=== PATIENT | male | born 1995 | race Hispanic/Latino ===

== ENCOUNTER 2017-10-01 21:33 | Emergency (ER) | payer OTHER ==
[2017-10-01 22:25] VITALS: BP 116/68
[2017-10-01] MEDS ORDERED: Sodium Chloride 0.9% 1,000 ML IV STA (22:36)
--- NOTE | 2017-10-01 22:42 | ED PDOC ---
Syncope/Near Syncope/Dizziness Time Seen by Provider: 10/01/17 22:14 Chief Complaint (Nursing): Dizziness/Lightheaded Chief Complaint (Provider): near-syncope History Per: Patient History/Exam Limitations: no limitations Onset/Duration Of Symptoms: Hrs (2) Current Symptoms Are (Timing): Still Present Activity At Onset Of Symptoms: Exertional Activity Associated Symptoms Preceding Syncopal Episode: Lightheadedness Additional Complaint(s): 22 y/o male presents for evaluation of near-syncopal episode 2 hours prior to arrival. Patient states he had just finished intercourse and when he stood up he got lightheaded and weak and felt like he was going to pass out. Patient states he then laid down with legs elevated and began to develop shortness of breath and pain in his left lower rib area. Patient reports same pain earlier this morning, which had resolved for most of the day. Denies fever, headache, dizziness, nausea/vomiting, palpitations, abdominal pain, vomiting, changes in bowel movements, urinary symptoms. Past Medical History Reviewed: Historical Data, Nursing Documentation, Vital Signs Vital Signs: Last Vital Signs Temp 97.9 F 10/01/17 22:04 Pulse 76 10/01/17 22:24 Resp 17 10/01/17 22:24 BP 116/68 10/01/17 22:24 Pulse Ox 99 10/01/17 22:24 - Medical History PMH: Obstructive Bowel - Surgical History Surgical History: No Surg Hx - Family History Family History: States: No Known Family Hx - Living Arrangements Living Arrangements: Alone - Social History Current smoker - smoking cessation education provided: No Alcohol: None Drugs: Denies - Allergies Allergies/Adverse Reactions: Allergies Allergy/AdvReac Type Severity Reaction Status Date / Time No Known Allergies Allergy Verified 10/01/17 22:05 Review of Systems ROS Statement: Except As Marked, All Systems Reviewed And Found Negative Constitutional: Positive for: Weakness Cardiovascular: Positive for: Chest Pain (left lower rib pain) Respiratory: Positive for: Shortness of Breath Physical Exam - Reviewed Nursing Documentation Reviewed: Yes Vital Signs Reviewed: Yes - Physical Exam Appears: Positive for: Well, Non-toxic, Uncomfortable Head Exam: Positive for: ATRAUMATIC, NORMAL INSPECTION, NORMOCEPHALIC Skin: Positive for: Normal Color Eye Exam: Positive for: Normal appearance ENT: Positive for: Normal ENT Inspection Cardiovascular/Chest: Positive for: Regular Rate, Rhythm Respiratory: Positive for: Normal Breath Sounds Gastrointestinal/Abdominal: Positive for: Normal Exam Back: Positive for: Normal Inspection Extremity: Positive for: Normal ROM Neurologic/Psych: Positive for: Alert, Oriented - Laboratory Results Result Diagrams: 10/01/17 23:02 10/01/17 23:02 - ECG ECG: Positive for: Viewed By Me (reviewed by ED attending) ECG Rhythm: Positive for: Sinus Rhythm O2 Sat by Pulse Oximetry: 99 - Radiology X-Ray: Viewed By Me X-Ray Interpretation: No Acute Disease - Progress ED Course And Treament: labs, urine, ekg, chest xray, orthostatics, IV fluids Patient evaluated by ED attending Dr. Klein; IV toradol ordered On re-eval, patient states chest pain markedly improved; requesting to be discharged Patient educated on findings, discharged with instructions to follow up PMD 2-3 days. Advised fluids, NSAIDs Return precautions given Disposition - Clinical Impression Clinical Impression: Near syncope, Atypical chest pain - Patient ED Disposition Is Patient to be Admitted: No Counseled Patient/Family Regarding: Studies Performed, Diagnosis, Need For Followup - Disposition Disposition: Routine/Home Disposition Time: 03:45 Condition: IMPROVED Instructions: Chest Pain That Is Not Caused by the Heart (DC), Near Fainting Forms: [employer] ([place] Citizen)
[2017-10-01 23:26] LABS: BASO % 0.6 % (0.0-2.0); EOS # 0.3 K/uL (0.0-0.7); EOS % 4.5 % (0.0-4.0); HEMOGLOBIN 14.8 g/dL (12.0-18.0); LYMPH # 3.4 K/uL (1.0-4.3); LYMPH % 45.8 % (20.0-40.0); MEAN CELL VOLUME 88.1 fl (80.0-94.0); MEAN CORPUSCULAR HEMOGLOBIN 30.5 pg (27.0-31.0); MEAN CORPUSCULAR HGB CONC 34.6 g/dL (33.0-37.0); MEAN PLATELET VOLUME 8.9 fl (7.2-11.7); MONO # 0.6 K/uL (0.0-0.8); MONO % 7.4 % (0.0-10.0); NEUT # 3.1 K/uL (1.8-7.0); NEUT % 41.7 % (50.0-75.0); NRBC % 0.1 % (0.0-0.0); RBC 4.83 Mil/uL (4.40-5.90); RED CELL DISTRIBUTION WIDTH 13.5 % (11.5-14.5); WHITE BLOOD COUNT 7.5 K/uL (4.8-10.8)
[2017-10-01 23:31] LABS: ALB/GLOB RATIO 1.8 (1.0-2.1); ALBUMIN 4.5 g/dL (3.5-5.0); ALT/SGPT 26 U/L (21-72); AST/SGOT 24 U/L (17-59); BLOOD UREA NITROGEN 18 mg/dl (9-20); CALCIUM 10.1 mg/dL (8.4-10.2); GFR AFRICAN-AMERICAN > 60; GFR NON-AFRICAN AMERICAN > 60
[2017-10-01 23:32] LABS: SPERM URINE RARE /hpf; SQUAMOUS EPITHIAL 1 /hpf (0-5); URINE BILIRUBIN NEGATIVE (NEGATIVE); URINE BLOOD NEGATIVE (NEGATIVE); URINE CLARITY CLEAR (Clear); URINE COLOR YELLOW (YELLOW); URINE GLUCOSE (UA) NEG (Normal); URINE LEUKOCYTE ESTERASE NEG Leu/uL (Negative); URINE PROTEIN NEGATIVE (NEGATIVE); URINE UROBILINOGEN 0.2-1.0 mg/dL (0.2-1.0)
[2017-10-02] MEDS ORDERED: Sodium Chloride 0.9% 1,000 ML IV STA (00:02)
[2017-10-02] MEDS ORDERED: DiphenhydrAMINE 50 mg/ml Inj IV ONE (01:11)
[2017-10-02 03:17] VITALS: PULSE 78; RESP 16; TEMP 98.1
--- NOTE | 2017-10-02 09:22 | RAD ---
Date of service: 10/02/2017 HISTORY: left-sided pain, sob COMPARISON: No prior. TECHNIQUE: Chest PA and lateral FINDINGS: LUNGS: No active pulmonary disease. PLEURA: No significant pleural effusion identified. No pneumothorax apparent. CARDIOVASCULAR: Normal. OSSEOUS STRUCTURES: No significant abnormalities. VISUALIZED UPPER ABDOMEN: Normal. OTHER FINDINGS: None. IMPRESSION: No active disease.
[2017-10-07 05:18] VITALS: O2SAT 99
== END 2017-10-02 03:50 | disposition home or self-care (01) ==
LOC: H.ER 21:33
DX: R55 Syncope and collapse (principal); R07.9 Chest pain, unspecified
CPT/HCPCS: 71046; 80053; 81003; 84484; 85025; 85378; 96374; 96375; 99285; J1200; J1885; J2930; J7030